=== PATIENT | male | born 1965 | race Caucasian/White ===

== ENCOUNTER 2020-09-23 10:27 | Emergency (ER) | payer MEDICARE ==
[~2020-09-23 10:27] MED LIST: ALDACTONE25 MG PO; AMIODARONE HCL200 MG PO; CORDARONE200 MG PO; COREG12.5 MG PO; COUMADIN5 MG PO; COUMADIN7.5 MG PO; ENTRESTO 24 MG1 EACH PO; KLOR-CON M1010 MEQ PO; LANOXIN 0.120.125 MG PO; LASIX40 MG PO; LIPITOR20 MG PO; LIPITOR40 MG PO; MEDROL 4MG DOSEP4 MG PO; MICRO-K10 MEQ PO; NORCO 5-325 TA1 EACH PO; PAXIL10 MG PO; PRINIVIL20 MG PO; ROBAXIN500 MG PO; SYNTHROID50 MCG PO; TOPROL XL 50 MG50 MG PO; TOPROL XL100 MG PO; TYLENOL325 M1 PO; VALIUM2 MG PO; VOLTAREN100 GM TOP; ZESTORETIC 20-1 EAC1 PO
[2020-09-23 10:52] LABS: BASOPHIL 0.3 % (0-2); HCT 43.8 % (42.0-52.0); HGB 15.2 g/dl (13.2-18.0); LYMPHOCYTE 60.1 % (15-48); MCHC 34.7 g/dL (32.0-36.0); MPV 10.6 fL (6.0-9.5); NEUTROPHIL 34.3 % (41-80); NRBC 0.2; PLT 182 K/uL (150-400); RBC 4.47 M/uL (4.70-6.00); RDW 12.2 % (11.5-14.0)
[2020-09-23 10:54] LABS: WBC 9.4 K/uL (4.0-10.5)
[2020-09-23 11:05] LABS: INR 0.97 (0.9-1.2); PROTHROMBIN TIME 12.3 SECONDS (11.8-13.4); PTT 26.1 SECONDS (24.4-34.7)
[2020-09-23 11:22] LABS: ALBUMIN 3.9 g/dL (3.4-5.0); BILIRUBIN - TOTAL 0.7 mg/dL (0.2-1.0); BUN/CREAT RATIO (CALC) 17.3 RATIO; CREATININE 1.1 mg/dL (0.67-1.17); POTASSIUM 4.1 mmol/L (3.5-5.1); TOTAL PROTEIN 6.9 g/dL (6.4-8.2)
== END 2020-09-23 14:59 | disposition other institution (70) ==
LOC: FER 10:27
PROVIDERS: Emergency Medicine
DX: I47.2 Ventricular tachycardia (principal); I11.0 Hypertensive heart disease with heart failure; I50.9 Heart failure, unspecified; Z95.0 Presence of cardiac pacemaker; E66.9 Obesity, unspecified; Z79.899 Other long term (current) drug therapy
CPT/HCPCS: 36415; 71045; 80053; 84484; 85025; 85610; 85730; 93005